=== PATIENT | male | born 1990 | race Two or more races ===

== ENCOUNTER 2020-05-15 21:13 | Inpatient (IN) | payer OTHER ==
[~2020-05-15] VITALS: Ht 185.4 cm; Wt 136.0 kg
[2020-05-15] MEDS ORDERED: DOXYCYCLINE 100MG/250ML 250 ML IV ONE (21:30)
[2020-05-15] MEDS ORDERED: SODIUM CHLORIDE 0.9% 1,000 ML IV ONE (21:30)
[2020-05-15] MEDS ORDERED: DexAMETHasone SOD PHOS 10MG/1ML VIAL INJ IV ONE (21:30)
[2020-05-15 22:12] LABS: Basophils # (auto) 0 10 ^3/uL (0-0.2); Basophils % (auto) 0.1 % (0.0-2.0); Eosinophils # (auto) 0 10 ^3/uL (0-0.8); Eosinophils % (auto) 0.1 % (0.0-7.0); Hematocrit 45.2 % (41.0-53.0); Hemoglobin 15.8 g/dL (13.5-17.5); Lymphocytes # (auto) 1.6 10 ^3/uL (0.4-5.4); Lymphocytes % (auto) 13.6 % (10.0-50.0); Mean Corpuscular Hemoglobin 28.9 pg (28.0-32.0); Mean Corpuscular Hgb Conc. 34.9 g/dL (32.0-36.0); Mean Corpuscular Volume 82.7 fL (80.0-100.0); Monocytes # (auto) 0.9 10 ^3/uL (0-1.3); Monocytes % (auto) 7.6 % (0.0-12.0); Neutrophils # (auto) 9.2 10 ^3/uL (1.6-8.6); Neutrophils % (auto) 78.6 % (37.0-80.0); Nucleated Red Blood Cells % 0.2 %; Platelet Count (auto) 372 10^3/uL (140-450); Red Blood Cells 5.47 10^6/uL (4.5-5.90); Red Cell Distribution Width 14.5 % (11.8-14.3); White Blood Cell 11.6 10^3/uL (4.4-10.8)
[2020-05-15 22:30] LABS: Calcium 8.8 mg/dL (8.5-10.1); Potassium 3.5 mmol/L (3.5-5.1)
[2020-05-15 22:32] LABS: Lactic Acid w/Reflex 2.3 mmol/L (0.4-2.0)
[2020-05-15 22:33] LABS: BUN/Creatinine Ratio 21.5; Bilirubin, Total 1.1 mg/dL (0.2-1.0); Total Protein 7.8 g/dL (6.4-8.2)
[2020-05-15 23:55] LABS: INR 1.03 (0.9-1.15); Partial Thromboplastin Time 23.7 sec (23.0-31.2)
[2020-05-16] MEDS ORDERED: NITROGLYCERIN 0.4 MG SL TAB SL PRN (01:15)
[2020-05-16] MEDS ORDERED: ONDANSETRON HCL 4 MG/2 ML VIAL IV PRN (01:15)
[2020-05-16] MEDS ORDERED: MORPHINE SULF INJ 2 MG/ML SYRINGE 1ML IV PRN (01:15)
[2020-05-16] MEDS ORDERED: TEMAZEPAM 15 MG CAP PO PRN (01:15)
[2020-05-16] MEDS ORDERED: ACETAMINOPHEN 500 MG TAB PO PRN (01:15)
[2020-05-16 02:06] LABS: Magnesium 2.4 mg/dL (1.6-2.6)
[2020-05-16 02:15] LABS: CRP High Sensitivity 5.53 mg/dL (< 0.3); Lactate Dehydrogenase 689 U/L (87-241)
[2020-05-16] MEDS: SODIUM CHLORIDE 0.9% 1,000 ML IV SCH ×3 (06:39→18:20)
[2020-05-16] MEDS: DexAMETHasone SOD PHOS 10MG/1ML VIAL INJ IV SCH (08:11)
[2020-05-16] MEDS: BUDESONIDE (INHALATION) 180 MCG IH IN SCH ×2 (08:11→10:00)
[2020-05-16] MEDS: DOXYCYCLINE 100MG/250ML 250 ML IV SCH ×2 (08:12→22:56)
[2020-05-16] MEDS: ZINC SULFATE 220mg CAP or TAB PO SCH (08:12)
[2020-05-16] MEDS: ASCORBIC ACID 1,000 MG TAB PO SCH (08:13)
[2020-05-16] MEDS: CHOLECALCIFEROL (VITD3) 2,000 UNIT CAP PO SCH (08:13)
[2020-05-16] MEDS: ENOXAPARIN SOD 40 MG/0.4 ML SYRINGE SC SCH ×2 (08:13→22:59)
[2020-05-16] MEDS: FAMOTIDINE 20 MG TAB PO SCH ×2 (08:13→22:58)
[2020-05-16] MEDS ORDERED: FUROSEMIDE 20 MG/2 ML VIAL IV ONE (17:15)
[2020-05-16] MEDS: POTASSIUM CHL 20 Meq TABLET PO SCH (18:20)
[2020-05-16 18:52] LABS: Cholesterol 106 mg/dL (< 200)
[2020-05-16 18:54] LABS: HDL Cholesterol 36 mg/dL (40-59); LDL Cholesterol 43 mg/dL (< 100); Triglycerides 292 mg/dL (< 150)
[2020-05-16 19:04] LABS: Urine Bacteria NONE SEEN /hpf (None Seen); Urine Blood Negative /uL (Negative); Urine Specific Gravity 1.028 (1.001-1.035); Urine WBC 1 /hpf (0 - 3)
[2020-05-16 20:00] VITALS: BP 125/71
[2020-05-16] MEDS: ATORVASTATIN 20 MG TAB PO SCH (22:58)
[2020-05-17] VITALS: BP 128/80
[2020-05-17] MEDS: FUROSEMIDE 20 MG/2 ML VIAL IV SCH ×2 (05:46→17:34)
[2020-05-17 07:37] LABS: Basophils # (auto) 0.1 10 ^3/uL (0-0.2); Basophils % (auto) 0.8 % (0.0-2.0); Eosinophils # (auto) 0 10 ^3/uL (0-0.8); Eosinophils % (auto) 0.3 % (0.0-7.0); Hematocrit 43.2 % (41.0-53.0); Lymphocytes # (auto) 1.7 10 ^3/uL (0.4-5.4); Lymphocytes % (auto) 22.5 % (10.0-50.0); Mean Corpuscular Hemoglobin 28.8 pg (28.0-32.0); Mean Corpuscular Hgb Conc. 34.8 g/dL (32.0-36.0); Mean Corpuscular Volume 82.6 fL (80.0-100.0); Monocytes # (auto) 0.5 10 ^3/uL (0-1.3); Monocytes % (auto) 5.9 % (0.0-12.0); Neutrophils # (auto) 5.4 10 ^3/uL (1.6-8.6); Neutrophils % (auto) 70.5 % (37.0-80.0); Nucleated Red Blood Cells % 0.1 %; Platelet Count (auto) 327 10^3/uL (140-450); Red Blood Cells 5.23 10^6/uL (4.5-5.90); Red Cell Distribution Width 14.3 % (11.8-14.3); White Blood Cell 7.6 10^3/uL (4.4-10.8)
[2020-05-17 07:54] LABS: Calcium 8.8 mg/dL (8.5-10.1); Potassium 3.5 mmol/L (3.5-5.1)
[2020-05-17 07:59] LABS: BUN/Creatinine Ratio 16.9; Total Protein 7.4 g/dL (6.4-8.2)
[2020-05-17 08:00] VITALS: BP 127/72
[2020-05-17] MEDS: BUDESONIDE (INHALATION) 180 MCG IH IN SCH ×2 (08:11→20:43)
[2020-05-17] MEDS: ALBUTEROL SULF HFA 90MCG INH 200DOSE IN PRN ×2 (08:11→20:43)
[2020-05-17] MEDS: DexAMETHasone SOD PHOS 10MG/1ML VIAL INJ IV SCH (09:57)
[2020-05-17] MEDS: SODIUM CHLORIDE 0.9% 1,000 ML IV SCH ×2 (09:57→16:30)
[2020-05-17] MEDS: ZINC SULFATE 220mg CAP or TAB PO SCH (09:58)
[2020-05-17] MEDS: ASPirin 81 mg TAB PO SCH (09:58)
[2020-05-17] MEDS: DOXYCYCLINE 100MG/250ML 250 ML IV SCH ×2 (09:58→21:30)
[2020-05-17] MEDS: POTASSIUM CHL 20 Meq TABLET PO SCH (09:59)
[2020-05-17] MEDS: FAMOTIDINE 20 MG TAB PO SCH ×2 (09:59→21:30)
[2020-05-17] MEDS: ENOXAPARIN SOD 40 MG/0.4 ML SYRINGE SC SCH ×2 (10:00→21:31)
[2020-05-17] MEDS: ASCORBIC ACID 1,000 MG TAB PO SCH (10:00)
[2020-05-17] MEDS: CHOLECALCIFEROL (VITD3) 2,000 UNIT CAP PO SCH (10:00)
[2020-05-17 16:00] VITALS: BP 123/74
[2020-05-17] MEDS: ATORVASTATIN 20 MG TAB PO SCH (21:30)
[2020-05-17 23:43] VITALS: BP 125/74
[2020-05-18] MEDS: FUROSEMIDE 20 MG/2 ML VIAL IV SCH ×2 (05:38→17:26)
[2020-05-18] MEDS: ALBUTEROL SULF HFA 90MCG INH 200DOSE IN PRN ×2 (07:25→20:26)
[2020-05-18] MEDS: BUDESONIDE (INHALATION) 180 MCG IH IN SCH ×2 (07:25→20:26)
[2020-05-18 08:00] VITALS: BP 111/62
[2020-05-18] MEDS: DexAMETHasone SOD PHOS 10MG/1ML VIAL INJ IV SCH (09:34)
[2020-05-18] MEDS: DOXYCYCLINE 100MG/250ML 250 ML IV SCH (09:34)
[2020-05-18] MEDS: ASPirin 81 mg TAB PO SCH (09:35)
[2020-05-18] MEDS: ZINC SULFATE 220mg CAP or TAB PO SCH (09:35)
[2020-05-18] MEDS: POTASSIUM CHL 20 Meq TABLET PO SCH (09:35)
[2020-05-18] MEDS: FAMOTIDINE 20 MG TAB PO SCH ×2 (09:36→21:28)
[2020-05-18] MEDS: CHOLECALCIFEROL (VITD3) 2,000 UNIT CAP PO SCH (09:36)
[2020-05-18] MEDS: ASCORBIC ACID 1,000 MG TAB PO SCH (09:36)
[2020-05-18] MEDS: ENOXAPARIN SOD 40 MG/0.4 ML SYRINGE SC SCH ×2 (09:38→21:28)
[2020-05-18] MEDS ORDERED: REMDESIVIR PER PHARMACY 0 ML IV SCH (11:30)
[2020-05-18] MEDS: guaiFENesin 200 MG/10 ML UD PO SCH ×2 (12:00→17:25)
[2020-05-18] MEDS ORDERED: REMDESIVIR 200 MG in NS 210ml LOADING DOSE ADULT IV ONE (15:00)
[2020-05-18 16:01] VITALS: BP 130/66
[2020-05-18] MEDS: SODIUM CHLORIDE 0.9% 1,000 ML IV SCH (16:30)
[2020-05-18] MEDS ORDERED: cefTRIAXone 1GM/50ML D5W 50 ML IV ONE (20:00)
[2020-05-18] MEDS ORDERED: AZITHROMYCIN 250 MG TAB PO ONE (20:00)
[2020-05-18] MEDS ORDERED: diphenhdrAMINE HCL 50 MG/1 ML VL IV PRN (20:15)
[2020-05-18] MEDS: ATORVASTATIN 20 MG TAB PO SCH (21:28)
[2020-05-18] MEDS ORDERED: FAMOTIDINE (10MG/ML) 2ML VL IV SCH (22:00)
[2020-05-18] MEDS: FAMOTIDINE (10MG/ML) 2ML VL IV SCH (22:00)
[2020-05-19] MEDS: guaiFENesin 200 MG/10 ML UD PO SCH ×4 (00:16→18:07)
[2020-05-19 00:23] VITALS: BP 129/73
[2020-05-19] MEDS: FUROSEMIDE 20 MG/2 ML VIAL IV SCH ×2 (05:45→19:02)
[2020-05-19 06:50] LABS: Potassium 3.6 mmol/L (3.5-5.1)
[2020-05-19 07:10] LABS: BUN/Creatinine Ratio 22.4; Calcium 8.9 mg/dL (8.5-10.1); Total Protein 7.3 g/dL (6.4-8.2)
[2020-05-19 08:00] VITALS: BP 99/60
[2020-05-19] MEDS: ASCORBIC ACID 1,000 MG TAB PO SCH (09:28)
[2020-05-19] MEDS: ZINC SULFATE 220mg CAP or TAB PO SCH (09:28)
[2020-05-19] MEDS: ASPirin 81 mg TAB PO SCH (09:28)
[2020-05-19] MEDS: DexAMETHasone SOD PHOS 10MG/1ML VIAL INJ IV SCH (09:29)
[2020-05-19] MEDS: POTASSIUM CHL 20 Meq TABLET PO SCH (09:29)
[2020-05-19] MEDS: FAMOTIDINE (10MG/ML) 2ML VL IV SCH ×2 (09:29→22:39)
[2020-05-19] MEDS: CHOLECALCIFEROL (VITD3) 2,000 UNIT CAP PO SCH (09:30)
[2020-05-19] MEDS: ENOXAPARIN SOD 40 MG/0.4 ML SYRINGE SC SCH ×2 (09:30→22:40)
[2020-05-19] MEDS: BUDESONIDE (INHALATION) 180 MCG IH IN SCH ×2 (10:00→19:17)
[2020-05-19] MEDS: REMDESIVIR 100mg 100 MG in SODIUM CHL 0.9% 230 ML IV SCH (14:50)
[2020-05-19 16:00] VITALS: BP 125/73
[2020-05-19] MEDS: ALBUTEROL SULF HFA 90MCG INH 200DOSE IN PRN (19:17)
[2020-05-19] MEDS: cefTRIAXone 1GM/50ML D5W 50 ML IV SCH (20:55)
[2020-05-19] MEDS: ATORVASTATIN 20 MG TAB PO SCH (22:39)
[2020-05-19] MEDS: AZITHROMYCIN 250 MG TAB PO SCH (22:39)
[2020-05-19 23:57] VITALS: BP 121/70
[2020-05-20] MEDS: FUROSEMIDE 20 MG/2 ML VIAL IV SCH (06:00)
[2020-05-20 06:05] LABS: Basophils # (auto) 0.1 10 ^3/uL (0-0.2); Basophils % (auto) 0.5 % (0.0-2.0); Eosinophils # (auto) 0.1 10 ^3/uL (0-0.8); Eosinophils % (auto) 0.8 % (0.0-7.0); Hematocrit 45.8 % (41.0-53.0); Hemoglobin 15.7 g/dL (13.5-17.5); Lymphocytes # (auto) 1.8 10 ^3/uL (0.4-5.4); Lymphocytes % (auto) 15.9 % (10.0-50.0); Mean Corpuscular Hgb Conc. 34.2 g/dL (32.0-36.0); Mean Corpuscular Volume 84.8 fL (80.0-100.0); Monocytes # (auto) 0.8 10 ^3/uL (0-1.3); Monocytes % (auto) 7.3 % (0.0-12.0); Neutrophils # (auto) 8.4 10 ^3/uL (1.6-8.6); Neutrophils % (auto) 75.5 % (37.0-80.0); Nucleated Red Blood Cells % 0.1 %; Platelet Count (auto) 356 10^3/uL (140-450); Red Cell Distribution Width 14.4 % (11.8-14.3); White Blood Cell 11.2 10^3/uL (4.4-10.8)
[2020-05-20 06:32] LABS: Potassium 3.7 mmol/L (3.5-5.1)
[2020-05-20] MEDS: guaiFENesin 200 MG/10 ML UD PO SCH ×4 (06:38→17:46)
[2020-05-20 06:44] LABS: Albumin 2.9 g/dL (3.4-5.0); BUN/Creatinine Ratio 24.6; CRP High Sensitivity 2.58 mg/dL (< 0.3); Calcium 8.3 mg/dL (8.5-10.1)
[2020-05-20] MEDS: BUDESONIDE (INHALATION) 180 MCG IH IN SCH ×2 (06:56→18:50)
[2020-05-20] MEDS: ALBUTEROL SULF HFA 90MCG INH 200DOSE IN PRN ×2 (06:56→18:50)
[2020-05-20 08:00] VITALS: BP 93/63
[2020-05-20] MEDS: ASPirin 81 mg TAB PO SCH (09:41)
[2020-05-20] MEDS: ZINC SULFATE 220mg CAP or TAB PO SCH (09:41)
[2020-05-20] MEDS: ENOXAPARIN SOD 40 MG/0.4 ML SYRINGE SC SCH ×2 (09:41→22:45)
[2020-05-20] MEDS: DexAMETHasone SOD PHOS 10MG/1ML VIAL INJ IV SCH (09:41)
[2020-05-20] MEDS: CHOLECALCIFEROL (VITD3) 2,000 UNIT CAP PO SCH (09:41)
[2020-05-20] MEDS: ASCORBIC ACID 1,000 MG TAB PO SCH (09:41)
[2020-05-20] MEDS: POTASSIUM CHL 20 Meq TABLET PO SCH (09:42)
[2020-05-20] MEDS: FAMOTIDINE (10MG/ML) 2ML VL IV SCH ×2 (11:46→22:44)
[2020-05-20] MEDS: REMDESIVIR 100mg 100 MG in SODIUM CHL 0.9% 230 ML IV SCH (14:55)
[2020-05-20 15:30] VITALS: BP 111/68
[2020-05-20] MEDS: FUROSEMIDE 40 MG/4 ML VIAL IV SCH (18:03)
[2020-05-20] MEDS: cefTRIAXone 1GM/50ML D5W 50 ML IV SCH (22:16)
[2020-05-20] MEDS: ATORVASTATIN 20 MG TAB PO SCH (22:44)
[2020-05-20] MEDS: AZITHROMYCIN 250 MG TAB PO SCH (22:45)
[2020-05-21] VITALS: BP 121/70
[2020-05-21] MEDS: guaiFENesin 200 MG/10 ML UD PO SCH ×4 (01:24→15:00)
[2020-05-21] MEDS: FUROSEMIDE 40 MG/4 ML VIAL IV SCH ×2 (06:00→18:00)
[2020-05-21] MEDS: BUDESONIDE (INHALATION) 180 MCG IH IN SCH (06:06)
[2020-05-21] MEDS: ALBUTEROL SULF HFA 90MCG INH 200DOSE IN PRN (06:06)
[2020-05-21 08:00] VITALS: BP 95/57
[2020-05-21 11:03] LABS: Albumin 2.9 g/dL (3.4-5.0); Calcium 8.3 mg/dL (8.5-10.1)
[2020-05-21 11:06] LABS: BUN/Creatinine Ratio 21.3
[2020-05-21] MEDS: FAMOTIDINE (10MG/ML) 2ML VL IV SCH (11:44)
[2020-05-21] MEDS: ZINC SULFATE 220mg CAP or TAB PO SCH (11:44)
[2020-05-21] MEDS: ENOXAPARIN SOD 40 MG/0.4 ML SYRINGE SC SCH (11:44)
[2020-05-21] MEDS: DexAMETHasone SOD PHOS 10MG/1ML VIAL INJ IV SCH (11:44)
[2020-05-21] MEDS: POTASSIUM CHL 20 Meq TABLET PO SCH (11:44)
[2020-05-21] MEDS: ASCORBIC ACID 1,000 MG TAB PO SCH (11:45)
[2020-05-21] MEDS: CHOLECALCIFEROL (VITD3) 2,000 UNIT CAP PO SCH (11:45)
[2020-05-21] MEDS: ASPirin 81 mg TAB PO SCH (11:45)
[2020-05-21] MEDS: REMDESIVIR 100mg 100 MG in SODIUM CHL 0.9% 230 ML IV SCH (14:20)
[2020-05-21] MEDS ORDERED: CHOL20007 PO (14:52)
[2020-05-21] MEDS ORDERED: METH4PAK PO (14:52)
[2020-05-21] MEDS ORDERED: DOXY-286 PO (14:53)
[2020-05-21] MEDS ORDERED: POTASSIUM CHL 20 Meq TABLET PO ONE (15:00)
[2020-05-21 15:41] VITALS: BP 120/65
[2020-05-21 15:49] VITALS: BP 122/66
[2020-05-21] MEDS ORDERED: ASPI-231 PO (16:18)
== END 2020-05-21 18:40 | disposition home or self-care (01) | DRG 871 ==
LOC: EDBD 21:13 → ER 21:17 → TELE 21:18 → TELE-WESTW 05-16 19:52
PROVIDERS: ADMIT Nurse Practitioner; ATTEND Internal Medicine Nephrology
PROC: XW033E5 Introduction of Remdesivir Anti-infective into Peripheral Vein, Percutaneous Approach, New Technology Group 5 (ICD-10-PCS; principal; 2020-05-18)
DX: A41.89 Other specified sepsis (principal); J12.82 Pneumonia due to coronavirus disease 2019; J96.01 Acute respiratory failure with hypoxia; U07.1 COVID-19; E44.0 Moderate protein-calorie malnutrition; E66.01 Morbid (severe) obesity due to excess calories; J01.00 Acute maxillary sinusitis, unspecified; R65.20 Severe sepsis without septic shock; E78.5 Hyperlipidemia, unspecified; R73.9 Hyperglycemia, unspecified
CPT/HCPCS: 36415; 36600; 71045; 80053; 80061; 81001; 82728; 82805; 83036; 83605; 83615; 83735; 84443; 84484; 85025; 85379; 85610; 85730; 86141; 86850; 86900; 86901; 87040; 87426; 93005; 94640; 96365; 96366; 96367; 96375; 96376; G0378; J0696; J1100; J3490